=== PATIENT | female | born 1990 | race Caucasian/White ===

== ENCOUNTER 2021-07-24 12:16 | Emergency (ER) | payer OTHER ==
[~2021-07-24] VITALS: Ht 152.4 cm; Wt 74.8 kg
[~2021-07-24 12:16] MED LIST: ATIVAN0.5 MG PO; AUGMENTIN 875875 MG PO; DOXYCYCLINE 10100 MG PO; FLAGYL500 M1 PO; FOLIC ACID0.4 MG PO; HYDROXYZINE HCL25 M1 PO; IBUPROFEN 200200 M1 PO; KEPPRA 500 MG500 MG PO; MACROBID 100 M100 MG PO; NEURONTIN 300300 M1 PO; NORCO 5-325 TA1 EACH PO; PERCOCET PO; ROXICODONE5 MG PO; VITAMIN B-6250 MG PO
[2021-07-24 13:06] LABS: URINE BILIRUBIN NEGATIVE (Negative); URINE BLOOD 3+ (Negative); URINE CLARITY CLEAR; URINE COLOR YELLOW; URINE GLUCOSE-RANDOM NEGATIVE (Negative); URINE KETONES NEGATIVE (Negative); URINE LEUKOCYTES-REFLEX 1+ (Negative); URINE NITRITE-REFLEX NEGATIVE (Negative); URINE PROTEIN NEGATIVE (Negative); URINE SPECIFIC GRAVITY 1.015 (1.005-1.030)
[2021-07-24 13:08] LABS: ABSOLUTE LYMPHOCYTES 2.4 thou/uL (0.8-5.3); ABSOLUTE NEUTROPHILS 9.9 thou/uL (1.6-8.1); BASOPHILS 0.2 %; EOSINOPHILS 0.3 %; HEMATOCRIT 33.8 % (37.0-47.0); HEMOGLOBIN 11.5 gm/dL (12.0-15.0); LYMPHOCYTES 17.8 %; MCH 30.5 pg (26.0-34.0); MCHC 34.1 g/dL (28.0-37.0); MCV 89.4 fL (80.0-100.0); MONOCYTES 7.6 %; NUCLEATED RBCS 0 /100WBC; PLATELET COUNT* 221 thou/uL (150-400); POLYS 74.1 %; RBC 3.79 mil/uL (4.20-5.00); RDW-CV 12.4 % (10.5-14.5); WBC 13.4 thou/uL (4.0-11.0)
[2021-07-24 13:11] LABS: BACTERIA-REFLEX 1-9 Few /HPF (None Seen); CASTS None Seen /LPF (None Seen); CRYSTALS None Seen /LPF (None Seen); MUCUS 0-3 Light strn/LPF (None Seen); SQUAMOUS 4-10 Moderate /LPF (0-3); URINE WBC-REFLEX 0-5 Rare /HPF (0-5)
[2021-07-24 13:16] LABS: CALCIUM 7.9 mg/dL (8.5-10.1); CREATININE 1.2 mg/dL (0.6-1.3)
[2021-07-24 13:20] LABS: ALBUMIN 3.1 g/dL (3.4-5.0); TOTAL BILIRUBIN 0.4 mg/dL (<0.1-1.0); TOTAL PROTEIN 6.9 g/dL (6.4-8.2)
[2021-07-24 13:22] LABS: POTASSIUM 2.9 mmol/L (3.5-5.1)
[2021-07-24 14:49] LABS: AMP/METHAMP Negative (Negative); BARBITURATES Negative (Negative); BENZODIAZEPINES POSITIVE (Negative); COCAINE Negative (Negative); METHADONE Negative (Negative); OPIATES POSITIVE (Negative); PCP Negative (Negative); THC POSITIVE (Negative)
[2021-07-24 15:20] LABS: INFLUENZA A ANTIGEN Negative (Negative); INFLUENZA B ANTIGEN Negative (Negative)
[2021-07-24 15:51] VITALS: BP 101/61
--- NOTE | 2021-07-24 16:01 | EKG ---
[place] [address] ELECTROCARDIOGRAM REPORT Name: PAMELAGWYN Joe Room: [facility]#: [id number] Admission: 07/24/21 Attend Phys: Discharge: 07/24/21 Date of : 89 Date of Service: 07/24/21 1326 Report #: [id number] THIS REPORT FOR: //name// [facility] ED Test Date: 2021-07-24 Test Time: 13:26:22 Pat Name: GWYN SANTIAGO Department: Room: Gender: Angiography Technologist: : 1990 Requested By: Binta Anderson Order Number: [id number] MD: Tristen Deal Measurements Intervals [place] Rate: 109 P: 31 MN: 141 QRS: 49 QRSD: 70 T: -14 QT: 288 QTc: 388 Interpretive Statements Sinus tachycardia Borderline low voltage, extremity leads No previous ECG available for comparison Electronically Signed On 07-24-2021 16:01:35 CDT by Tristen Deal [email or web address] <ELECTRONICALLY SIGNED> By: Tristen Deal MD, [facility] 07/24/21 1601 1326 1326 Tristen Deal MD, FAC /EPI
== END 2021-07-24 15:51 | disposition left against medical advice (07) ==
LOC: M.ERS 12:16
PROVIDERS: Nurse Practitioner Family
DX: R50.9 Fever, unspecified (principal); Z20.822 Contact with and (suspected) exposure to COVID-19; R51.9 Headache, unspecified; Z88.5 Allergy status to narcotic agent; Z88.6 Allergy status to analgesic agent

== ENCOUNTER 2021-07-28 08:49 | Emergency (ER) | payer OTHER ==
[~2021-07-28] VITALS: Ht 152.4 cm; Wt 74.8 kg
[2021-07-28] MEDS ORDERED: MUPIROCIN22 GM TOP (09:19)
[2021-07-28 09:33] VITALS: BP 136/79
== END 2021-07-28 09:34 | disposition home or self-care (01) ==
LOC: M.ERS 08:49
DX: L01.00 Impetigo, unspecified (principal); L98.9 Disorder of the skin and subcutaneous tissue, unspecified; Z90.49 Acquired absence of other specified parts of digestive tract; Z88.5 Allergy status to narcotic agent